=== PATIENT | male | born 1975 | race Caucasian/White ===

== ENCOUNTER 2022-03-08 08:40 | Day surgery (SDC) | payer OTHER ==
[~2022-03-08] VITALS: Ht 182.9 cm; Wt 71.1 kg
[2022-03-08 09:34] VITALS: BP 126/89; PULSE 91; TEMP 97.8
[2022-03-08 10:32] VITALS: BP 101/74; PULSE 72
--- NOTE | 2022-03-08 10:32 | NUR ---
Pt returns to [facility] and ambulates to recliner easily. Denies pain or nausea. VSS. Dynamap applied. Call light in reach. Muffin and water provided. at bedside. 1055 Discharge instructions provided. IV discontinued. Dr. Mccoy to bedside and talks with pt. Pt gets dressed and taken out via wheelchair at 1105 and left in care of his .
[2022-03-08 10:45] VITALS: BP 104/79; PULSE 66
== END 2022-03-08 11:05 | disposition home or self-care (01) ==
LOC: SDCO 08:40
DX: Z12.11 Encounter for screening for malignant neoplasm of colon (principal); D12.8 Benign neoplasm of rectum
CPT/HCPCS: J2704; J3010; J7120